=== PATIENT | male | born 1985 | race African-American/Black ===

== ENCOUNTER 2017-10-23 00:29 | Emergency (ER) | payer SELFPAY ==
[2017-10-23 01:20] LABS: HEMATOCRIT 41.9 % (37.9-51.0); HEMOGLOBIN 13.8 g/dL (13.5-17.0); MEAN CORPUSCULAR HEMOGLOBIN 27.2 pg (27.0-33.4); MEAN CORPUSCULAR VOLUME 82 fl (80-97); PLATELET COUNT 189 10^3/uL (150-450); RED BLOOD COUNT 5.09 10^6/uL (4.35-5.55); WHITE BLOOD COUNT 4.4 10^3/uL (4.0-10.5)
--- NOTE | 2017-10-23 01:30 | ER Document Report ---
ED General - General Chief Complaint: Bloody Stools Stated Complaint: BLOOD IN STOOL Time Seen by Provider: 10/23/17 00:46 Notes: Patient is a 32-year-old male with a past medical history of morbid obesity and hemorrhoids who presents with 24 hours of rectal bleeding when he has bowel movements. Patient states that he noticed this this morning and that has persisted since that time. Each time he has a bowel movement or wipes he notices fresh bright red blood covering the stool and on the toilet paper. He states that this is more blood than he has had in the past with hemorrhoids which prompted him to come to the emergency department. Nothing improves or worsens his symptoms. He has not seen his general doctor regarding today's concerns. He does note ongoing constipation where he often has to strain to have bowel movements and that his stool is often firm. He denies any abdominal pain, fever or constitutional symptoms. TRAVEL OUTSIDE OF THE [place] IN LAST 30 DAYS: No - Related Data Allergies/Adverse Reactions: No Known Allergies Allergy (Unverified 10/08/13 09:21) Past Medical History - General Information source: Patient - Social History Smoking Status: Current Every Day Smoker Chew tobacco use (# tins/day): No Frequency of alcohol use: Social Drug Abuse: None Lives with: Alone Family History: Other - no early family hx or hx of mi per patient. denies: CAD Patient has suicidal ideation: No Patient has homicidal ideation: No Renal/ Medical History: Denies: Hx Peritoneal Dialysis - Immunizations Hx Diphtheria, Pertussis, Tetanus Vaccination: Yes Review of Systems - Review of Systems Notes: Constitutional: Negative for fever. HENT: Negative for sore throat. Eyes: Negative for visual changes. Cardiovascular: Negative for chest pain. Respiratory: Negative for shortness of breath. Gastrointestinal: Positive for rectal bleeding Genitourinary: Negative for dysuria. Musculoskeletal: Negative for back pain. Skin: Negative for rash. Neurological: Negative for headaches, weakness or numbness. 10 point ROS negative except as marked above and in HPI. Physical Exam - Vital signs Vitals: Temp Pulse Resp BP Pulse Ox 97.6 F 64 18 138/75 H 98 10/23/17 00:34 10/23/17 00:34 10/23/17 00:34 10/23/17 00:34 10/23/17 00:34 Interpretation: Normal Notes: PHYSICAL EXAMINATION: GENERAL: Well-appearing, well-nourished and in no acute distress. HEAD: Atraumatic, normocephalic. EYES: Pupils equal round and reactive to light, extraocular movements intact, sclera anicteric, conjunctiva are normal. ENT: nares patent, oropharynx clear without exudates. Moist mucous membranes. NECK: Normal range of motion, supple without lymphadenopathy LUNGS: Breath sounds clear to auscultation bilaterally and equal. No wheezes rales or rhonchi. HEART: Regular rate and rhythm without murmurs ABDOMEN: Soft, nontender, normoactive bowel sounds. No guarding, no rebound. No masses appreciated. Rectal exam: Immediately upon palpation of the rectum just beyond the anal sphincter several large internal hemorrhoids are palpated and to result in some bleeding with palpation. EXTREMITIES: Normal range of motion, no pitting or edema. No cyanosis. NEUROLOGICAL: No focal neurological deficits. Moves all extremities spontaneously and on command. PSYCH: Normal mood, normal affect. SKIN: Warm, Dry, normal turgor, no rashes or lesions noted. Course - Re-evaluation Re-evalutation: 10/23/17 01:29 Presentation is most consistent with uncomplicated internal hemorrhoids. Internal hemorrhoids appreciated on examination. No evidence of anemia on CBC. Patient's abdominal exam is otherwise benign. I do not suspect a more significant lower GI bleed or upper GI bleed based on history, vitals, normal hemoglobin, and patient's overall well appearance. At this time will discharge with return precautions and follow-up recommendations. Verbal discharge instructions given a the bedside and opportunity for questions given. Medication warnings reviewed. Patient is in agreement with this plan and has verbalized understanding of return precautions and the need for primary care follow-up in the next 24-72 hours. - Vital Signs Vital signs: Temp Pulse Resp BP Pulse Ox 97.6 F 64 18 141/94 H 97 10/23/17 00:34 10/23/17 00:34 10/23/17 01:08 10/23/17 01:08 10/23/17 01:08 - Laboratory Result Diagrams: 10/23/17 01:07 Discharge - Discharge Clinical Impression: Internal bleeding hemorrhoids Condition: Good Disposition: HOME, SELF-CARE Additional Instructions: You were seen today for hemorrhoids. The best treatment is to avoid straining while having bowel moments, avoiding heavy lifting, or any other activity that causes you to bear down forcefully. You need to make sure that your stools are soft and should start taking Docusate 200mg in the morning and at night until your stools are very soft and you can have a bowel movement without any straining. Please follow-up with your primary doctor and follow-up with the general surgery clinic listed in the paperwork for consideration of surgical management of these internal hemorrhoids. Return if you begin to have persistent bleeding, worsening pain, abdominal pain, fever >101, or any other symptoms that are concerning to you. Referrals: NELSY ROSARIO MD [Primary Care Provider] - Follow up as needed JA LANCE MD [ACTIVE STAFF] - Follow up as needed
[2017-10-23 01:35] VITALS: BP 141/94
== END 2017-10-23 01:47 | disposition home or self-care (01) ==
LOC: ER 00:29
DX: K64.8 Other hemorrhoids (principal); K62.5 Hemorrhage of anus and rectum; E66.01 Morbid (severe) obesity due to excess calories; F17.200 Nicotine dependence, unspecified, uncomplicated
CPT/HCPCS: 36415; 85027; 99284

== ENCOUNTER 2018-04-30 11:16 | Emergency (ER) | payer SELFPAY ==
--- NOTE | 2018-04-30 12:30 | RADIOLOGY REPORT (SQ) ---
EXAM DESCRIPTION: HAND RIGHT 3 VIEWS COMPLETED DATE/TIME: 04/30/2018 12:12 pm REASON FOR STUDY: thumb injury hurt pain COMPARISON: None. EXAM PARAMETERS: NUMBER OF VIEWS: Three views. TECHNIQUE: AP, lateral and oblique radiographic images acquired of the right hand. LIMITATIONS: None. FINDINGS: MINERALIZATION: Normal. BONES: No acute fracture or dislocation. No worrisome bone lesions. JOINTS: No effusions. SOFT TISSUES: No soft tissue swelling. No foreign body. OTHER: No other significant finding. IMPRESSION: NEGATIVE STUDY OF THE RIGHT HAND. NO RADIOGRAPHIC EVIDENCE OF ACUTE INJURY. TECHNICAL DOCUMENTATION: JOB ID: [id number] [employer]- All Rights Reserved Reading location - IP/workstation name: [email or web address]
--- NOTE | 2018-04-30 13:00 | ER Document Report ---
ED General - General Chief Complaint: Thumb Injury Stated Complaint: THUMB INJURY Time Seen by Provider: 04/30/18 11:57 TRAVEL OUTSIDE OF THE [place] IN LAST 30 DAYS: No - HPI Patient complains to provider of: Right thumb injury Notes: Patient coming in for evaluation of his thumb. Patient states he was trying to the count however insist ending up being Admitted He Tried to Slide It Was Right Hand Says Ever since That Time He Has Had Pain at the Base of His Thumb. Patient Denies Any Other Injuries Patient Denies Any past Medical Issues. - Related Data Allergies/Adverse Reactions: No Known Allergies Allergy (Verified 04/30/18 11:18) Past Medical History - Social History Smoking Status: Current Every Day Smoker Chew tobacco use (# tins/day): No Frequency of alcohol use: None Drug Abuse: None Family History: Other - no early family hx or hx of mi per patient. denies: CAD Patient has suicidal ideation: No Patient has homicidal ideation: No Renal/ Medical History: Denies: Hx Peritoneal Dialysis - Immunizations Hx Diphtheria, Pertussis, Tetanus Vaccination: Yes Review of Systems - Review of Systems Constitutional: No symptoms reported EENT: No symptoms reported Cardiovascular: No symptoms reported Respiratory: No symptoms reported Gastrointestinal: No symptoms reported Genitourinary: No symptoms reported Male Genitourinary: No symptoms reported Musculoskeletal: Other - Thumb pain Skin: No symptoms reported Hematologic/Lymphatic: No symptoms reported Neurological/Psychological: No symptoms reported Physical Exam - Vital signs Vitals: Temp Pulse Resp BP Pulse Ox 98.3 F 66 12 153/79 H 100 04/30/18 11:26 04/30/18 11:26 04/30/18 11:26 04/30/18 11:26 04/30/18 11:26 Interpretation: Normal - General General appearance: Appears well, Alert - HEENT Head: Normocephalic, Atraumatic Eyes: Normal Pupils: PERRL - Respiratory Respiratory status: No respiratory distress Chest status: Nontender Breath sounds: Normal Chest palpation: Normal - Cardiovascular Rhythm: Regular Heart sounds: Normal auscultation Murmur: No - Abdominal Inspection: Normal Distension: No distension Bowel sounds: Normal Tenderness: Nontender Organomegaly: No organomegaly - Back Back: Normal, Nontender - Extremities General upper extremity: Normal inspection, Nontender, Normal color, Normal ROM, Normal temperature, Other - Abduction adduction flexion extension of the thumb does not reproduce any pain. Patient has no pain with Joo's testing good building rental manager strength no snuffbox tenderness on examination of the right thumb there is a prominence of the MCP joint when compared to the left General lower extremity: Normal inspection, Nontender, Normal color, Normal ROM, Normal temperature, Normal weight bearing. No: Lynne's sign - Neurological Neuro grossly intact: Yes Cognition: Normal Orientation: AAOx4 Cristi Coma Scale Eye Opening: Spontaneous Cristi Coma Scale Verbal: Oriented Cristi Coma Scale Motor: Obeys Commands Cristi Coma Scale Total: 15 Speech: Normal Motor strength normal: LUE, RUE, LLE, RLE Sensory: Normal - Psychological Associated symptoms: Normal affect, Normal mood - Skin Skin Temperature: Warm Skin Moisture: Dry Skin Color: Normal Course - Re-evaluation Re-evalutation: 04/30/18 14:46 Physical examination does not reveal any clear etiology is why the patient has some pain examination is otherwise normal except for prominence of the MCP joint and the patient stating that he continues to be in a lot of pain. X-rays negative did discuss with Dr. Mccall hand surgeon marketing liaison did recommend placing the patient in a thumb spica splint follow-up in the clinic patient declined the splinting at this time did recommend patient use ice Tylenol and Motrin for pain control patient states he will follow-up with a hand surgeon patient was discharged home - Vital Signs Vital signs: Temp Pulse Resp BP Pulse Ox 98.0 F 58 L 16 126/74 H 98 04/30/18 13:59 04/30/18 13:59 04/30/18 13:59 04/30/18 13:59 04/30/18 13:59 Discharge - Discharge Clinical Impression: Injury of right thumb Qualifiers: Encounter type: initial encounter Qualified Code(s): S69.91XA - Unspecified injury of right wrist, hand and finger(s), initial encounter Condition: Good Disposition: HOME, SELF-CARE Instructions: Sprained Thumb ([facility]) Additional Instructions: Your evaluation today is consistent with a possible thumb sprain. Did discuss your injury with the hand surgeon marketing liaison Dr. Mccall recommend splinting at this time Tylenol and anti-inflammatory medication for pain control please follow-up with his office. Dr. Mccall's information is in your discharge packet Prescriptions: Ibuprofen [Motrin 600 mg Tablet] 600 mg PO Q8HP PRN #21 tablet PRN Reason: Referrals: SHEILA MCCALL DO [ACTIVE STAFF] - Follow up as needed
[2018-04-30 14:02] VITALS: BP 126/74
== END 2018-04-30 14:05 | disposition home or self-care (01) ==
LOC: ER 11:16
DX: S69.91XA Unspecified injury of right wrist, hand and finger(s), initial encounter (principal); X58.XXXA Exposure to other specified factors, initial encounter; F17.200 Nicotine dependence, unspecified, uncomplicated
CPT/HCPCS: 99283

== ENCOUNTER 2019-05-14 18:41 | Emergency (ER) | payer OTHER ==
[2019-05-14] MEDS ORDERED: IBUPROFEN 600 MG TABLET PO ONE (20:27)
[2019-05-14] MEDS ORDERED: ACETAMINOPHEN 325 MG TABLET PO ONE (20:27)
--- NOTE | 2019-05-14 20:28 | ER Document Report ---
HPI - HPI Time Seen by Provider: 05/14/19 20:25 Pain Level: 4 Notes: 34-year-old male patient presents emergency department chief complaint of right ankle pain. 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 Reports pain has progressively gotten worse through the day. He states this happened at approximately 1 PM this afternoon. - REPRODUCTIVE Reproductive: DENIES: : Past Medical History - General Information source: Patient - Social History Smoking Status: Current Every Day Smoker Drug Abuse: None Lives with: Alone Family History: Other - no early family hx or hx of mi per patient. denies: CAD Patient has suicidal ideation: No Patient has homicidal ideation: No Renal/ Medical History: Denies: Hx Peritoneal Dialysis - Immunizations Hx Diphtheria, Pertussis, Tetanus Vaccination: Yes Vertical Provider Document - CONSTITUTIONAL Notes: PHYSICAL EXAMINATION: GENERAL: Well-appearing, well-nourished and in no acute distress. HEAD: Atraumatic, normocephalic. EYES: Pupils equal round extraocular movements intact, conjunctiva are normal. ENT: Nares patent NECK: Normal range of motion LUNGS: No respiratory distress Musculoskeletal: Right ankle erythematous, swollen, ecchymosis noted on the lateral aspect, cap refills in 3 seconds, normal motor and sensation distally, strong dorsalis pedis pulse. NEUROLOGICAL: Normal speech. PSYCH: Normal mood, normal affect. SKIN: Warm, Dry, normal turgor, no rashes or lesions noted. - INFECTION CONTROL TRAVEL OUTSIDE OF THE [place] IN LAST 30 DAYS: No Course - Re-evaluation Re-evalutation: X-ray negative for any acute fracture or dislocation. Patient will be placed in an ankle stirrup splint and crutches. Patient will follow-up with orthopedics and Workmen's Comp. provider. - Vital Signs Vital signs: Temp Pulse Resp BP Pulse Ox 98.4 F 87 16 168/79 H 100 05/14/19 18:54 05/14/19 18:54 05/14/19 18:54 05/14/19 18:54 05/14/19 18:54 Procedures - Immobilization Right ankle Pre-Proc Neuro Vasc Exam: Normal Immobilizer type: Ankle stirrup, Crutches Performed by: PCT Discharge - Discharge Clinical Impression: Ankle injury Qualifiers: Encounter type: initial encounter Laterality: unspecified laterality Qualified Code(s): S99.919A - Unspecified injury of unspecified ankle, initial encounter Condition: Stable Disposition: HOME, SELF-CARE Instructions: Sprained Ankle ([facility]) Additional Instructions: Your x-ray does not show any acute fracture. You have a sprained ankle. Keep the area elevated, apply ice 20 minutes every 2 hours, and use crutches as needed. You should take ibuprofen 600 mg every 6 hours as needed for pain. Use the narcotic pain medication for severe pain only. Please return if you have worsening pain and swelling, fever greater than 101, you notice spreading redness from the area, or have any other symptoms that are concerning to you. Please follow-up with orthopedic surgery if your symptoms have not improved in the next 2-3 weeks. Forms: Return to Work
--- NOTE | 2019-05-14 21:14 | RADIOLOGY REPORT (SQ) ---
XR ANKLE 3 OR MORE VIEWS CLINICAL STATEMENT: fall COMPARISON: None FINDINGS: Bony alignment is anatomic. There is no fracture or dislocation. Mild diffuse soft tissue swelling. Ankle mortise is not widened. IMPRESSION: No fracture.
--- NOTE | 2019-05-14 21:15 | RADIOLOGY REPORT (SQ) ---
XR FOOT 3 OR MORE VIEWS CLINICAL STATEMENT: fall COMPARISON: None FINDINGS: Bony alignment is anatomic. There is no fracture or dislocation. The soft tissues are unremarkable. IMPRESSION: No fracture.
[2019-05-14] MEDS ORDERED: HYDROCODONE/ACETAMINOPHEN 5-325 MG (6 TAB/ER DISP) PO PRN (21:40)
[2019-05-14 22:41] VITALS: BP 136/86
== END 2019-05-14 22:41 | disposition home or self-care (01) ==
LOC: ER 18:41
DX: S99.919A Unspecified injury of unspecified ankle, initial encounter (principal); F17.200 Nicotine dependence, unspecified, uncomplicated; W17.89XA Other fall from one level to another, initial encounter; Y93.E6 Activity, residential relocation; Y99.0 Civilian activity done for income or pay
CPT/HCPCS: 99283; 73610; 73630; L1902